=== PATIENT | female | born 1955 | race Caucasian/White ===

== ENCOUNTER 2017-03-22 11:14 | Emergency (ER) | payer OTHER ==
--- NOTE | 2017-03-22 13:02 | UC ---
Hip/Pelvis Pain - HPI Summary HPI Summary: complaint of right hip pain seen by PCP 1 week ago for right hip pain denies trauma but has been going up and down the stairs and moving boxes for the last 2 weeks concern about bursitits -sent by PCP for ct scan currently taking anticoagulat - arixida constant hip pain - prednisone not helping her sitting down and standing up she gets a sharp pain in her hip denies any swelling in her hip non radiating pain inside her hip not taking any medication for pain d/t biliary disease -3-4 weeks ago had a bullseye ring on her left arm and was put on a week of doxtcylcine and PCP is concerned that she has lyme disease- denies fever seeing ortho and PCP next week - History Of Current Complaint Hx Obtained From: Patient <Lavern Guerrero - Last Filed: 03/22/17 14:30> <Criss Dinero - Last Filed: 03/22/17 14:34> - History Of Current Complaint Chief Complaint: UCLowerExtremity Stated Complaint: HIP PAIN Time Seen by Provider: 03/22/17 12:50 - Allergies/Home Medications Allergies/Adverse Reactions: Allergies Allergy/AdvReac Type Severity Reaction Status Date / Time Chocolate Allergy Rash Verified 10/12/16 09:58 BEES Allergy Hives/Diff. Uncoded 10/12/16 09:58 Breathing/I tching POISON BRIDGETT Allergy Hives/Diff. Uncoded 10/12/16 09:58 Breathing/I tching PMH/Surg Hx/FS Hx/Imm Hx Previously Healthy: Yes Cardiovascular History: Pacemaker/ICD, Other - sick sinus syndrome Other Cardiovascular History: sick sinus syndrome Other History Of: Anticoagulant Therapy - Surgical History Surgical History: Yes Surgery Procedure, Year, and Place: PACEMAKER, HYSTERCTOMY, SHOULDER YRS AGO, OVARIAN CYCST, - Family History Known Family History: Positive: Cardiac Disease, Hypertension, Blood Disorder - clotting, Other - esophageal cancer (father) - Social History Occupation: Retired Lives: With Family Alcohol Use: None Substance Use Type: None Smoking Status (MU): Never Smoked Tobacco - Immunization History Most Recent Influenza Vaccination: 2014 Most Recent Pneumonia Vaccination: none <Lavern Guerrero - Last Filed: 03/22/17 14:30> Review of Systems Constitutional: Negative Skin: Negative Eyes: Negative ENT: Negative Respiratory: Negative Cardiovascular: Negative Gastrointestinal: Negative Genitourinary: Negative Motor: Negative Neurovascular: Negative Musculoskeletal: Other: - hip pain Neurological: Negative Psychological: Negative All Other Systems Reviewed And Are Negative: Yes <Lavern Guerrero - Last Filed: 03/22/17 14:30> Physical Exam Triage Information Reviewed: Yes Appearance: No Pain Distress, Well-Nourished Vital Signs: Initial Vital Signs Temp 95.9 F 03/22/17 12:45 Pulse 70 03/22/17 12:45 Resp 18 03/22/17 12:45 BP 127/74 03/22/17 12:45 Pulse Ox 98 03/22/17 12:45 Vital Signs Reviewed: Yes Eyes: Positive: Conjunctiva Clear ENT: Positive: Pharynx normal, TMs normal Neck: Positive: No Lymphadenopathy Respiratory: Positive: Lungs clear, Normal breath sounds, No respiratory distress, No accessory muscle use Cardiovascular: Positive: RRR, No Murmur, Pulses Normal Abdomen Description: Positive: Nontender, Soft Bowel Sounds: Positive: Present Musculoskeletal: Positive: Other: - right hip tenderness no ecchymosis or edema Neurological: Positive: Alert Psychological Exam: Normal Skin Exam: Normal <Lavern Guerrero - Last Filed: 03/22/17 14:30> Vital Signs: Initial Vital Signs Temp 95.9 F 03/22/17 12:45 Pulse 70 03/22/17 12:45 Resp 18 03/22/17 12:45 BP 127/74 03/22/17 12:45 Pulse Ox 98 03/22/17 12:45 <Criss Dinero - Last Filed: 03/22/17 14:34> Hip Injury Course/Dx - Course Course Of Treatment: exam completed. will order ctscan as requested to rule out bursitis an blood formation in hip joint as requested by PCP. ct scan shows probabale lipoma in right hip joint will followup with orthopedics. will draw lyme titer and will followup with PCP - Differential Dx/Diagnosis Differential Diagnosis/HQI/PQRI: Bursitis, Sprain, Strain Provider Diagnoses: right hip pain <Lavern Guerrero - Last Filed: 03/22/17 14:30> Discharge <Lavern Guerrero - Last Filed: 03/22/17 14:30> <Criss Dinero - Last Filed: 03/22/17 14:34> - Discharge Plan Condition: Stable Disposition: HOME Patient Education Materials: Hip Pain (ED) Referrals: No Primary Care Phys,NOPCP [Primary Care Provider] - [facility] [place] [facility] [Outside] Additional Instructions: Please review your discharge instructions. please followup with your primary care provider and quality control specialist If your symptoms do not improve please call your primary care provider or return to urgent care. Attestation Statement User Type: Provider - I was available for consult. This patient was seen by the [facility]. The patient was not presented to, seen by, or examined by me. -Afia <Criss Dinero - Last Filed: 03/22/17 14:34>
--- NOTE | 2017-03-22 14:18 | RAD ---
INDICATION: Right hip pain COMPARISON: None TECHNIQUE: Noncontrast axial source images were obtained from the iliac crests through the symphysis pubis. FINDINGS: There is no acute fracture. There is an area of rarefaction measuring approximately 8 cm in cephalocaudal dimension and occupying the medullary space of the right femoral metadiaphysis. There is a sharp zone of transition. The lesion measures -80 Hounsfield units indicating the presence of fat. There is no scalloping/thinning of the adjacent cortex. There is no adjacent soft tissue abnormality on noncontrast imaging. This low index of suspicion entity may represent an intraosseous lipoma. It likely represents an incidental finding. However, a bone scan recommended for further characterization. There is mild to moderate osteoarthritic change involving the right hip which may account for the patient's symptoms. The SI joints and symphysis are intact. The remaining soft tissue elements of the bony pelvis are unremarkable. IMPRESSION: LOW INDEX OF SUSPICION PROXIMAL RIGHT FEMORAL LESION DESCRIBED. RECOMMEND FURTHER IMAGING STARTING WITH A BONE SCAN. UNDERLYING OSTEOARTHRITIS
[2017-03-22 14:56] VITALS: BP 113/78
== END 2017-03-22 14:56 | disposition home or self-care (01) ==
LOC: UCEAST 11:14
DX: M25.551 Pain in right hip (principal); Z95.0 Presence of cardiac pacemaker; I49.5 Sick sinus syndrome; Z79.01 Long term (current) use of anticoagulants
CPT/HCPCS: 72192; 86617; 99212; G0463

== ENCOUNTER 2017-08-08 10:12 | Emergency (ER) | payer OTHER ==
[2017-08-08 11:42] VITALS: BP 122/58
--- NOTE | 2017-08-08 12:11 | UC ---
Respiratory Complaint HPI - HPI Summary HPI Summary: Patient presents with a past medical history of SSS, TEENA and wear CPAP at night. She presents with complaints of chest and sinus congestion. Sputum production of thick purulent mucous, sinus discharge. She states that she cannot wear her CPAP because of the respiratory symptoms. - History of Current Complaint Chief Complaint: UCRespiratory Stated Complaint: RESP INFECTION Time Seen by Provider: 08/08/17 11:13 Hx Obtained From: Patient ?: No Onset/Duration: Gradual Onset, Lasting Days Severity Initially: Mild Severity Currently: Moderate Character: Cough: Productive Aggravating Factors: Exertion, Deep Breaths, Recumbent Position Alleviating Factors: Upright Position, Spontaneous Resolution Associated Signs And Symptoms: Positive: Wheezing, URI, Nasal Congestion, Sinus Discomfort - Risk Factors Pulmonary Embolism Risk Factors: Negative Cardiac Risk Factors: Negative Pseudomonas Risk Factors: Negative Tuberculosis Risk Factors: Negative - Allergies/Home Medications Allergies/Adverse Reactions: Allergies Allergy/AdvReac Type Severity Reaction Status Date / Time Chocolate Allergy Rash Verified 08/08/17 11:42 BEES Allergy Hives/Diff. Uncoded 08/08/17 11:42 Breathing/I tching POISON BRIDGETT Allergy Hives/Diff. Uncoded 08/08/17 11:42 Breathing/I tching PMH/Surg Hx/FS Hx/Imm Hx Previously Healthy: Yes Cardiovascular History: Pacemaker/ICD Psychological History: Anxiety Other History Of: Anticoagulant Therapy - Surgical History Surgical History: Yes Surgery Procedure, Year, and Place: PACEMAKER, HYSTERCTOMY, SHOULDER YRS AGO, OVARIAN CYCST, - Family History Known Family History: Positive: Cardiac Disease, Hypertension, Blood Disorder - clotting, Other - esophageal cancer (father) - Social History Occupation: Retired Lives: Alone Alcohol Use: None Substance Use Type: None Smoking Status (MU): Never Smoked Tobacco - Immunization History Most Recent Influenza Vaccination: 2014 Most Recent Pneumonia Vaccination: none Review of Systems Constitutional: Fatigue Skin: Negative Eyes: Negative ENT: Negative, Nasal Discharge, Sinus Congestion, Sinus Pain/Tenderness Respiratory: Cough Cardiovascular: Negative Gastrointestinal: Negative Genitourinary: Negative Motor: Negative Neurovascular: Negative Musculoskeletal: Negative Neurological: Negative Psychological: Negative All Other Systems Reviewed And Are Negative: Yes Physical Exam Triage Information Reviewed: Yes Appearance: Well-Appearing Vital Signs: Initial Vital Signs Temp 97.2 F 08/08/17 11:37 Pulse 70 08/08/17 11:37 Resp 18 08/08/17 11:37 BP 122/58 08/08/17 11:37 Pulse Ox 100 08/08/17 11:37 Vital Signs Reviewed: Yes Eye Exam: Normal ENT Exam: Normal ENT: Positive: Pharyngeal erythema, Nasal congestion, Nasal drainage Neck exam: Normal Neck: Positive: 1 Respiratory Exam: Normal Respiratory: Positive: Other: - harsh breath sounds. Cardiovascular Exam: Normal Abdominal Exam: Normal Musculoskeletal Exam: Normal Neurological Exam: Normal Psychological Exam: Normal Skin Exam: Normal UC Diagnostic Evaluation - Laboratory O2 Sat by Pulse Oximetry: 100 Respiratory Course/Dx - Course Course Of Treatment: Patient presents with sinus infection, and reports she reponds well to augmentin 875 mg bid x 10 days, I also recommend saline nasal spray. She was discharged home in stable conditions. - Differential Dx/Diagnosis Differential Diagnosis/HQI/PQRI: Sinusitis Provider Diagnoses: sinusitis Discharge - Discharge Plan Condition: Stable Disposition: HOME Prescriptions: Amoxicillin/Clavulanate TAB* [Augmentin TAB 875*] 875 mg PO BID #20 tab Patient Education Materials: Sinusitis (ED) Referrals: No Primary Care Phys,NOPCP [Primary Care Provider] -
== END 2017-08-08 12:05 | disposition home or self-care (01) ==
LOC: UCEAST 10:12
DX: J01.90 Acute sinusitis, unspecified (principal); Z95.0 Presence of cardiac pacemaker
CPT/HCPCS: 99212; G0463

== ENCOUNTER 2018-01-13 07:41 | Emergency (ER) | payer OTHER ==
[2018-01-13 07:54] VITALS: BP 122/76
--- NOTE | 2018-01-13 08:30 | UC ---
FLU HPI - HPI Summary HPI Summary: Patient presents with 2 days of myalgias, cough, overall malaise. Yesterday developed fever Tmax 102. Has felt wheezy. Has sinus pressure. - History of Current Complaint Chief Complaint: UCRespiratory Stated Complaint: BODYACHES,SORE THROAT Time Seen by Provider: 01/13/18 07:46 Hx Obtained From: Patient Onset/Duration: Gradual Onset, Lasting Days, Still Present Severity Currently: Mild Severity Initially: Moderate Pain Intensity: 8 Pain Scale Used: 0-10 Numeric Associated Signs & Symptoms: Positive: Fever, Myalgia, Cough, Nasal Congestion, Headache - Allergy/Home Medications Allergies/Adverse Reactions: Allergies Allergy/AdvReac Type Severity Reaction Status Date / Time chocolate flavor Allergy Rash Verified 01/13/18 07:55 BEES Allergy Hives/Diff. Uncoded 01/13/18 07:55 Breathing/I tching POISON BRIDGETT Allergy Hives/Diff. Uncoded 01/13/18 07:55 Breathing/I tching Home Medications: Home Medications Acetaminophen [Tylophen] 500 mg PO Q6H PRN 01/13/18 [History Confirmed 01/13/18] Cholecalciferol TAB* [Vitamin D TAB*] 1,000 unit PO DAILY 01/13/18 [History Confirmed 01/13/18] Fondaparinux* [Arixtra*] 7.5 mg SC BEDTIME 01/13/18 [History Confirmed 01/13/18] Omeprazole CAP* [Prilosec CAP* 20 MG] 20 mg PO DAILY 01/13/18 [History Confirmed 01/13/18] PMH/Surg Hx/FS Hx/Imm Hx - Additional Past Medical History Additional PMH: PRIMARY BILIARY DISORDER, CLOTTING DISORDER Cardiovascular History: Cardiac Disease Other History Of: Anticoagulant Therapy - Surgical History Surgical History: Yes Surgery Procedure, Year, and Place: PACEMAKER, HYSTERCTOMY, SHOULDER YRS AGO, OVARIAN CYCST, - Family History Known Family History: Positive: Cardiac Disease, Hypertension, Blood Disorder - clotting, Other - esophageal cancer (father) - Social History Alcohol Use: None Substance Use Type: None Smoking Status (MU): Never Smoked Tobacco - Immunization History Most Recent Influenza Vaccination: 2014 Most Recent Pneumonia Vaccination: none Review of Systems Constitutional: Fever, Chills, Fatigue ENT: Nasal Discharge, Sinus Congestion Respiratory: Cough Cardiovascular: Negative Gastrointestinal: Negative Musculoskeletal: Myalgia Neurological: Headache All Other Systems Reviewed And Are Negative: Yes Physical Exam Triage Information Reviewed: Yes Appearance: Well-Appearing, No Pain Distress, Well-Nourished Vital Signs: Initial Vital Signs Temp 97.0 F 01/13/18 07:49 Pulse 79 01/13/18 07:49 Resp 16 01/13/18 07:49 BP 122/76 01/13/18 07:49 Pulse Ox 96 01/13/18 07:49 Vital Signs Reviewed: Yes Eyes: Positive: Conjunctiva Clear ENT: Positive: Hearing grossly normal, Pharynx normal, TMs normal Neck: Positive: Supple, Nontender, No Lymphadenopathy Respiratory Exam: Normal Cardiovascular Exam: Normal Abdomen Description: Positive: Soft Musculoskeletal: Positive: No Edema Neurological: Positive: Alert Psychological: Positive: Age Appropriate Behavior Skin: Negative: rashes Diagnostics - Laboratory Diagnostic Studies Completed/Ordered: INFLUENZA A POSITIVE Flu Course/Dx - Differential Dx/Diagnosis Provider Diagnoses: INFLUENZA A Discharge - Sign-Out/Discharge Documenting (check all that apply): Discharge - Discharge Plan Condition: Stable Disposition: HOME Prescriptions: Oseltamivir CAP* [Tamiflu CAP*] 75 mg PO BID #10 cap Patient Education Materials: Influenza (ED) Referrals: No Primary Care Phys,NOPCP [Primary Care Provider] - Additional Instructions: SWAB POSITIVE FOR INFLUENZA A. TAMIFLU TWICE DAILY FOR 5 DAYS. OTC MEDS NEEDED FOR FEVER, BODY ACHES. STAY WELL HYDRATED AND RESTED. SEEK FOLLOW-UP WITH YOUR PCP IN [place] IF YOU ARE NOT IMPROVING EXPECTED. - Billing Disposition and Condition Condition: STABLE Disposition: HOME
== END 2018-01-13 08:30 | disposition home or self-care (01) ==
LOC: UCEAST 07:41
DX: J10.1 Influenza due to other identified influenza virus with other respiratory manifestations (principal); K83.9 Disease of biliary tract, unspecified; D68.9 Coagulation defect, unspecified; Z95.0 Presence of cardiac pacemaker
CPT/HCPCS: 87502; 99212; G0463

== ENCOUNTER 2018-02-28 23:07 | Emergency (ER) | payer OTHER ==
--- NOTE | 2018-03-01 00:11 | ED ---
Skin Complaint - HPI Summary HPI Summary: 63-year-old female presents with rash to left shoulder. She states that 2 weeks ago she started on doxycycline for Lyme disease. States she had 3 tick bites. She states she had a bull eye rash so they placed her on doxycycline. She states 3 days ago she had a bite she believes to her left shoulder. She states the redness has been spreading. She is concerned she has cellulitis. she denies any fevers. She states the area is itchy. She's been alternating Benadryl and hydrocortisone. She states that it helps. She states she is pain certainly is concerned that if she gets sepsis it will be bad. - History of Current Complaint Chief Complaint: EDRashSkinAbscess Time Seen by Provider: 02/28/18 23:43 Stated Complaint: RED SPOT ON SHOULDER Pain Intensity: 6 - Allergy/Home Medications Allergies/Adverse Reactions: Allergies Allergy/AdvReac Type Severity Reaction Status Date / Time chocolate flavor Allergy Rash Verified 01/13/18 07:55 BEES Allergy Hives/Diff. Uncoded 01/13/18 07:55 Breathing/I tching POISON BRIDGETT Allergy Hives/Diff. Uncoded 01/13/18 07:55 Breathing/I tching PMH/Surg Hx/FS Hx/Imm Hx Endocrine/Hematology History: Reports: Hx Anticoagulant Therapy, Hx Blood Disorders - clotting Denies: Hx Diabetes, Hx Thyroid Disease Cardiovascular History: Reports: Hx Pacemaker/ICD, Other Cardiovascular Problems /Disorders - sick sinus syndrome Denies: Hx Hypertension Respiratory History: Denies: Hx Asthma, Hx Chronic Obstructive Pulmonary Disease (COPD) GI History: Reports: Other GI Disorders - primary biliary imflammation - urdisol Denies: Hx Ulcer History: Denies: Hx Acute Renal Failure, Hx Chronic Renal Failure Musculoskeletal History: Reports: Hx Orthopedic Injury - ankle and knee sprains , Other Musculoskeletal History - 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 Sensory History: Denies: Hx Contacts or Glasses Opthamlomology History: Denies: Hx Contacts or Glasses Neurological History: Reports: Hx Migraine - visual migraines Psychiatric History: Reports: Hx Anxiety - panic attacks - sertraline, xanax - Surgical History Surgery Procedure, Year, and Place: PACEMAKER, HYSTERCTOMY, SHOULDER YRS AGO, OVARIAN CYCST, Infectious Disease History: No Infectious Disease History: Denies: Hx Clostridium Difficile, Hx Hepatitis, Hx Human Immunodeficiency Virus (HIV), Hx of Known/Suspected MRSA, Hx Shingles, Hx Tuberculosis, Hx Known/ Suspected VRE, Hx Known/Suspected VRSA, History Other Infectious Disease, Traveled Outside the [place] in Last 30 Days - Family History Known Family History: Positive: Cardiac Disease, Hypertension, Blood Disorder - clotting, Other - esophageal cancer (father) - Social History Alcohol Use: None Substance Use Type: Reports: None Smoking Status (MU): Never Smoked Tobacco Review of Systems Negative: Chest Pain Negative: Shortness Of Breath Positive: Rash All Other Systems Reviewed And Are Negative: Yes Physical Exam Triage Information Reviewed: Yes Vital Signs On Initial Exam: Initial Vitals Temp Pulse Resp BP Pulse Ox 98.2 F 75 16 167/80 99 02/28/18 23:14 02/28/18 23:14 02/28/18 23:14 02/28/18 23:14 02/28/18 23:14 Vital Signs Reviewed: Yes Appearance: Positive: Well-Appearing Skin: Positive: Warm, Dry, Other - bug bite appearing lesion to left shoulder with erythema without warmth to left shoulder, no signs of cellulitis appears allergic Head/Face: Positive: Normal Head/Face Inspection Eyes: Positive: Normal, Conjunctiva Clear Respiratory/Lung Sounds: Positive: Clear to Auscultation, Breath Sounds Present Cardiovascular: Positive: Normal, RRR Musculoskeletal: Positive: Normal Neurological: Positive: Normal Psychiatric: Positive: Normal Diagnostics - Vital Signs Vital Signs Temp Pulse Resp BP Pulse Ox 02/28/18 23:14 98.2 F 75 16 167/80 99 - Laboratory Lab Statement: Any lab studies that have been ordered have been reviewed, and results considered in the medical decision making process. Course/Dx - Course Course Of Treatment: 63-year-old female presents with rash to left shoulder. She states that 2 weeks ago she started on doxycycline for Lyme disease. States she had 3 tick bites. She states she had a bull eye rash so they placed her on doxycycline. She states 3 days ago she had a bite she believes to her left shoulder. She states the redness has been spreading. She is concerned she has cellulitis. she denies any fevers. She states the area is itchy. She' s been alternating Benadryl and hydrocortisone. She states that it helps. She states she is pain certainly is concerned that if she gets sepsis it will be bad. On exam has usually with left shoulder with allergic type reaction around it. Does not appear cellulitic. Had discussion with patient that does not need in another antibioitic but patient is insistent. discussed that appears to be allergic reactin to the bite. Discussed that Keflex was stepdown for doxycycline if would want to prescribe antibiotic should prescribe clindamycin. prescibed clindamycin although explained may have cause c diff. patient understand and agrees with plan. - Differential Diagnoses - Skin Complaint Differential Diagnoses: Abscess, Cellulitis, Contact Dermatitis - Diagnoses Provider Diagnoses: Bug bite Discharge - Sign-Out/Discharge Documenting (check all that apply): Discharge/Admit/Transfer - Discharge Plan Condition: Good Disposition: HOME Prescriptions: Clindamycin Cap(NF) [Clindamycin Cap 300 mg Cap(NF)] 300 mg PO TID #21 cap Patient Education Materials: Insect Bite or Sting (ED) Referrals: [facility] [place] [facility] [Outside] Additional Instructions: Take clindamycin three times a day for 7 days, take probiotic place Benadryl cream on area, take bendaryl at night place hydrocortisone on area Continue doxycyline Follow up with primary within 5 days Return to ED if develop fever, or any new or worsening symptoms - Billing Disposition and Condition Condition: GOOD Disposition: HOME
[2018-03-01 00:27] VITALS: BP 123/78
== END 2018-03-01 00:27 | disposition home or self-care (01) ==
LOC: ED 23:07
DX: S40.262A Insect bite (nonvenomous) of left shoulder, initial encounter (principal); W57.XXXA Bitten or stung by nonvenomous insect and other nonvenomous arthropods, initial encounter; Y92.9 Unspecified place or not applicable
CPT/HCPCS: 99282

== ENCOUNTER 2018-09-17 12:22 | Emergency (ER) | payer OTHER ==
[2018-09-17 14:23] VITALS: BP 137/81
--- NOTE | 2018-09-17 14:31 | ED ---
Abdominal Pain/Female - HPI Summary HPI Summary: A 63 y/o female presents to [facility] with a chief complaint of abd since 09/16/18. She states that the pain is not sharp but is constant. She rates her pain as 6/ 10 and states that her pain is in the lower abdomen. She claims that it feels like someone is jumping on her abdomen. She also c/o nausea. She reports that she takes bile salts for her primary biliary inflammation. She has had loose stool but claims this is her baseline. She had a colonoscopy done with the results being that she is high risk for diverticulitis. She denies any vomiting or diarrhea. She has a Hx of UTI. The patient reports that three times she thought she had appendicitis but her appendix was never removed. She has no aggravating or alleviating factors. - History of Current Complaint Chief Complaint: EDAbdPain Stated Complaint: LOWER ABD PAIN Time Seen by Provider: 09/17/18 14:25 Hx Obtained From: Patient Onset/Duration: Sudden Onset, Lasting Hours, Still Present Timing: Constant Severity Initially: Moderate Severity Currently: Moderate Pain Intensity: 6 Pain Scale Used: 0-10 Numeric Location: Diffuse - lower abd Radiates: No Character: Other: - not sh Aggravating Factor(s): Nothing Alleviating Factor(s): Nothing Allergies/Adverse Reactions: Allergies Allergy/AdvReac Type Severity Reaction Status Date / Time chocolate flavor Allergy Rash Verified 09/17/18 12:34 BEES Allergy Hives/Diff. Uncoded 09/17/18 12:34 Breathing/I tching POISON BRIDGETT Allergy Hives/Diff. Uncoded 09/17/18 12:34 Breathing/I tching PMH/Surg Hx/FS Hx/Imm Hx Endocrine/Hematology History: Reports: Hx Anticoagulant Therapy, Hx Blood Disorders - clotting Denies: Hx Diabetes, Hx Thyroid Disease Cardiovascular History: Reports: Hx Pacemaker/ICD, Other Cardiovascular Problems /Disorders - sick sinus syndrome Denies: Hx Hypertension Respiratory History: Denies: Hx Asthma, Hx Chronic Obstructive Pulmonary Disease (COPD) GI History: Reports: Other GI Disorders - primary biliary imflammation - urdisol Denies: Hx Ulcer History: Denies: Hx Acute Renal Failure, Hx Chronic Renal Failure Musculoskeletal History: Reports: Hx Orthopedic Injury - ankle and knee sprains , Other Musculoskeletal History - 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 Sensory History: Denies: Hx Contacts or Glasses Opthamlomology History: Denies: Hx Contacts or Glasses Neurological History: Reports: Hx Migraine - visual migraines Psychiatric History: Reports: Hx Anxiety - panic attacks - sertraline, xanax - Surgical History Surgery Procedure, Year, and Place: PACEMAKER, HYSTERCTOMY, SHOULDER YRS AGO, OVARIAN CYCST, Infectious Disease History: No Infectious Disease History: Denies: Hx Clostridium Difficile, Hx Hepatitis, Hx Human Immunodeficiency Virus (HIV), Hx of Known/Suspected MRSA, Hx Shingles, Hx Tuberculosis, Hx Known/ Suspected VRE, Hx Known/Suspected VRSA, History Other Infectious Disease, Traveled Outside the [place] in Last 30 Days - Family History Known Family History: Positive: Cardiac Disease, Hypertension, Blood Disorder - clotting, Other - esophageal cancer (father) - Social History Alcohol Use: None Substance Use Type: Reports: None Smoking Status (MU): Never Smoked Tobacco Review of Systems Negative: Fever Positive: Abdominal Pain, Nausea. Negative: Vomiting, Diarrhea All Other Systems Reviewed And Are Negative: Yes Physical Exam - Summary Physical Exam Summary: Appearance: The patient is well-nourished in no acute distress and in no acute pain. Skin: The skin is warm and dry and skin color reflects adequate perfusion. HEENT: The head is normocephalic and atraumatic. The pupils are equal and reactive. The conjunctivae are clear and without drainage. Nares are patent and without drainage. Mouth reveals moist mucous membranes and the throat is without erythema and exudate. The external ears are intact. The ear canals are patent and without drainage. The tympanic membranes are intact. Neck: The neck is supple with full range of motion and non-tender. There are no carotid bruits. There is no neck vein distension. Respiratory: Chest is non-tender. Lungs are clear to auscultation and breath sounds are symmetrical and equal. Cardiovascular: Heart is regular rate and rhythm. There is no murmur or rub auscultated. There is no peripheral edema and pulses are symmetrical and equal. Abdomen: Diffusely tender in lower abdomen. There are normal bowel sounds heard in all four quadrants and there is no organomegaly palpated. Musculoskeletal: There is no back tenderness noted. Extremities are non-tender with full range of motion. There is good capillary refill. There is no peripheral edema or calf tenderness elicited. Neurological: Patient is alert and oriented to person, place and time. The patient has symmetrical motor strength in all four extremities. Cranial nerves are grossly intact. Deep tendon reflexes are symmetrical and equal in all four extremities. Psychiatric: The patient has an appropriate affect and does not exhibit any anxiety or depression. Triage Information Reviewed: Yes Vital Signs On Initial Exam: Initial Vitals Temp Pulse Resp BP Pulse Ox 97.3 F 70 16 149/90 96 09/17/18 12:34 09/17/18 12:34 09/17/18 12:34 09/17/18 12:34 09/17/18 12:34 Vital Signs Reviewed: Yes Diagnostics - Vital Signs Vital Signs Temp Pulse Resp BP Pulse Ox 09/17/18 14:22 70 95 09/17/18 14:20 71 137/81 95 09/17/18 12:34 97.3 F 70 16 149/90 96 - Laboratory Result Diagrams: 09/17/18 15:25 09/17/18 15:26 Lab Statement: Any lab studies that have been ordered have been reviewed, and results considered in the medical decision making process. - CT abdomen/pelvis CT Interpretation Completed By: Radiologist Summary of CT Findings: 1. NO EVIDENCE FOR ACUTE FINDING. 2. MILD HEPATOMEGALY AND HEPATIC STEATOSIS. 3. CHOLELITHIASIS WITHOUT EVIDENCE FOR ACUTE CHOLECYSTITIS. 4. STATUS POST HYSTERECTOMY. 5. LUCENT LESION IN THE PROXIMAL RIGHT FEMUR, UNCHANGED. ED physician has reviewed this imaging report. Re-Evaluation - Re-Evaluation First Eval Re-Evaluation Time: 16:40 Change: Improved Comment: Patient is feeling better and ready for discharge. Abdominal Pain Fem Course/Dx - Course Course Of Treatment: Ms. Vizcaino presented complaining of several days of low abdominal pain that has been intermittent and crampy at times. She was nontoxic in appearance and her vital signs are stable on arrival. She had mild lower abdominal tenderness with normoactive bowel sounds. Her labs were obtained and unremarkable aside from a very slight bilirubin elevation and alkaline phosphatase elevation she has biliary process and her bilirubin is always in the vicinity. She's not sure about the alkaline phosphatase which is nontender in the right upper quadrant and her gallbladder on CT scan shows stones but no inflammation. CT is otherwise unremarkable except aside from a hyperechoic liver. I'm not sure the etiology of her abdominal pain and I tried to reassure her that it was not dangerous at this time. We do not have a UA but she states she has had many urinary tract infections and this does not feel like that. - Diagnoses Provider Diagnoses: Abdominal pain Discharge - Sign-Out/Discharge Documenting (check all that apply): Patient Departure - DC - Discharge Plan Condition: Stable Disposition: HOME Patient Education Materials: Abdominal Pain (ED) Referrals: Alona Cerrato MD [Primary Care Provider] - (2-3 days ) Additional Instructions: Follow up with your PCP in 2-3 days. Return to the ED if you experience any new or worsening symptoms. - Billing Disposition and Condition Condition: STABLE Disposition: Home - Attestation Statements Document Initiated by Scribe: Yes Documenting Scribe: Dano Horowitz Provider For Whom Esteban is Documenting (Include Credential): Juan José Child MD Scribe Attestation: Dano Roman, scribed for Juan José Child MD on 09/17/18 at 2048. Scribe Documentation Reviewed: Yes Provider Attestation: The documentation as recorded by the Dano tanner accurately reflects the service I personally performed and the decisions made by me, Juan José Child MD Status of Scribe Document: Viewed
[2018-09-17 15:40] LABS: ABS Basophils 0.1 10^3/ul (0-0.2); ABS Eosinophils 0.1 10^3/ul (0-0.6); ABS Lymphocytes 1.9 10^3/ul (1.0-4.8); ABS Monocytes 0.5 10^3/ul (0-0.8); ABS Neutrophils 2.5 10^3/ul (1.5-7.7); ABS Nucleated RBC 0 10^3/ul; Eosinophil % 1.4 %; Hematocrit 43 % (35-47); Hemoglobin 14.3 g/dl (12.0-16.0); Lymphocyte % 37.6 %; Mean Corpuscular HGB Conc 34 g/dl (31-36); Mean Corpuscular Hemoglobin 32 pg (27-31); Mean Corpuscular Volume 94 fL (80-97); Mean Platelet Volume 7.5 fL (7.4-10.4); Nucleated Red Blood Cells % 0.1; Platelet Count 245 10^3/ul (150-450); Red Cell Distribution Width 13 % (10.5-15)
[2018-09-17 15:56] LABS: EGFR Non-African American 98.7 (>60)
== END 2018-09-17 16:52 | disposition home or self-care (01) ==
LOC: ED 12:22
DX: R10.30 Lower abdominal pain, unspecified (principal); K80.20 Calculus of gallbladder without cholecystitis without obstruction; R16.0 Hepatomegaly, not elsewhere classified; R11.0 Nausea; F41.0 Panic disorder [episodic paroxysmal anxiety]; Z79.01 Long term (current) use of anticoagulants; Z87.440 Personal history of urinary (tract) infections; Z90.710 Acquired absence of both cervix and uterus; Z95.810 Presence of automatic (implantable) cardiac defibrillator
CPT/HCPCS: 36415; 74176; 80053; 83605; 85025; 86140; 99283

== ENCOUNTER 2019-01-05 17:47 | Emergency (ER) | payer OTHER ==
--- NOTE | 2019-01-05 19:52 | ED ---
Adult Trauma - HPI Summary HPI Summary: This patient is a 63 year old female presenting to [facility] with a chief complaint of injuries after a fall. The patient tripped over a shoelace and fell backwards and hit her head. She is primarily complaining of right hip pain. The patient says she initially felt pain in her neck but it has resolved. She describes the pain as soreness and rates it 2/10 in severity. Her primary concern is with bleeding because she takes Xarelto. - History of Current Complaint Chief Complaint: EDHeadInjury Stated Complaint: FALL/HEAD INJURY PER PT Time Seen by Provider: 01/05/19 19:41 Hx Obtained From: Patient Mechanism of Injury: Fall Ambulatory at the Scene: Yes Loss of Consciousness: no loss of consciousness Pain Intensity: 2 Pain Scale Used: 0-10 Numeric Location: Neck, Other - Hip - Allergy/Home Medications Allergies/Adverse Reactions: Allergies Allergy/AdvReac Type Severity Reaction Status Date / Time chocolate flavor Allergy Rash Verified 01/05/19 17:53 BEES Allergy Hives/Diff. Uncoded 09/17/18 12:34 Breathing/I tching POISON BRIDGETT Allergy Hives/Diff. Uncoded 09/17/18 12:34 Breathing/I tching National Institutes Of Health - NIH Scale Level of Consciousness: Alert/Keenly Responsive Ask Patient the Month and His/Her Age: Both Correct Ask Pt to Open/Close Eyes and Credit Collector/Release Non-Paretic Hand: Both Correctly Best Gaze (Only Horizontal Eye Movement): Normal Visual Field Testing: No Visual Loss Facial Paresis-Pt to Smile & Close Eyes or Grimace Symmetry: Normal/Symmetrical Motor Function - Right Arm: No Drift-Holds 10 Seconds Motor Function - Left Arm: No Drift-Holds 10 Seconds Motor Function - Right Leg: No Drift-Holds 10 Seconds Motor Function - Left Leg: No Drift-Holds 10 Seconds Limb Ataxia-Must be out of Proportion to Weakness Present: Absent Sensory (Use Pinprick to Test Arms/Legs/Trunk/Face): Normal Best Language (Describe Picture, Name Items): No Aphasia Dysarthria (Read Several Words): Normal Extinction and Inattention: No Abnormality Total Score: 0 PMH/Surg Hx/FS Hx/Imm Hx Endocrine/Hematology History: Reports: Hx Anticoagulant Therapy, Hx Blood Disorders - clotting Denies: Hx Diabetes, Hx Thyroid Disease Cardiovascular History: Reports: Hx Pacemaker/ICD, Other Cardiovascular Problems /Disorders - sick sinus syndrome Denies: Hx Hypertension Respiratory History: Denies: Hx Asthma, Hx Chronic Obstructive Pulmonary Disease (COPD) GI History: Reports: Other GI Disorders - primary biliary imflammation - urdisol Denies: Hx Ulcer History: Denies: Hx Acute Renal Failure, Hx Chronic Renal Failure Musculoskeletal History: Reports: Hx Orthopedic Injury - ankle and knee sprains , Other Musculoskeletal History - 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 Sensory History: Denies: Hx Contacts or Glasses Opthamlomology History: Denies: Hx Contacts or Glasses Neurological History: Reports: Hx Migraine - visual migraines Psychiatric History: Reports: Hx Anxiety - panic attacks - sertraline, xanax - Surgical History Surgery Procedure, Year, and Place: PACEMAKER, HYSTERCTOMY, SHOULDER YRS AGO, OVARIAN CYCST, Infectious Disease History: No Infectious Disease History: Denies: Hx Clostridium Difficile, Hx Hepatitis, Hx Human Immunodeficiency Virus (HIV), Hx of Known/Suspected MRSA, Hx Shingles, Hx Tuberculosis, Hx Known/ Suspected VRE, Hx Known/Suspected VRSA, History Other Infectious Disease, Traveled Outside the [place] in Last 30 Days - Family History Known Family History: Positive: Cardiac Disease, Hypertension, Blood Disorder - clotting, Other - esophageal cancer (father) - Social History Alcohol Use: None Substance Use Type: Reports: None Smoking Status (MU): Never Smoked Tobacco Review of Systems Negative: Fever Positive: Other - Right Hip pain- still present. Neck pain- resolved. All Other Systems Reviewed And Are Negative: Yes Physical Exam - Summary Physical Exam Summary: Appearance: The patient is well-nourished in no acute distress and in no acute pain. Skin: The skin is warm and dry and skin color reflects adequate perfusion. Small ecchymosis on right hip, mild tenderness. HEENT: The head is normocephalic and atraumatic. The pupils are equal and reactive. The conjunctivae are clear and without drainage. Nares are patent and without drainage. Mouth reveals moist mucous membranes and the throat is without erythema and exudate. The external ears are intact. The ear canals are patent and without drainage. The tympanic membranes are intact. Neck: The neck is supple with full range of motion. There are no carotid bruits. There is no neck vein distension.Mild midline cervical tenderness Respiratory: Chest is non-tender. Lungs are clear to auscultation and breath sounds are symmetrical and equal. Cardiovascular: Heart is regular rate and rhythm. There is no murmur or rub auscultated. There is no peripheral edema and pulses are symmetrical and equal. Abdomen: The abdomen is soft and non-tender. There are normal bowel sounds heard in all four quadrants and there is no organomegaly palpated. Musculoskeletal: There is no back tenderness noted. Extremities are non-tender with full range of motion. There is good capillary refill. There is no peripheral edema or calf tenderness elicited. Neurological: Patient is alert and oriented to person, place and time. The patient has symmetrical motor strength in all four extremities. Cranial nerves are grossly intact. Deep tendon reflexes are symmetrical and equal in all four extremities. Psychiatric: The patient has an appropriate affect and does not exhibit any anxiety or depression. GCS: 15 Triage Information Reviewed: Yes Vital Signs On Initial Exam: Initial Vitals Temp Pulse Resp BP Pulse Ox 98.1 F 68 18 153/86 97 01/05/19 17:47 01/05/19 17:47 01/05/19 17:47 01/05/19 17:47 01/05/19 17:47 Vital Signs Reviewed: Yes Diagnostics - Vital Signs Vital Signs Temp Pulse Resp BP Pulse Ox 01/05/19 17:47 98.1 F 68 18 153/86 97 - Laboratory Lab Statement: Any lab studies that have been ordered have been reviewed, and results considered in the medical decision making process. - CT Brain CT Interpretation Completed By: Radiologist Summary of CT Findings: No acute intracranial abnormality. No interval changes. ED Provider has reviewed this report. Adult Trauma Course/Dx - Course Course Of Treatment: Ms. Vizcaino had a mechanical fall today and fell backwards onto her right by doc and hit the back of her head. There was no loss of consciousness and initially she didn't have any pain. She subsequently developed some posterior head pain and pain in the right but talk. She came in because she was concerned that she is on a blood thinner and hit her head. A CT scan was ordered at triage and was negative for any bleeding. She was in a hurry to get going as her needs attention. She promised she would come back if her hip bothered her more for her neck did. I think likely she has some contusion and cervical strain. - Diagnoses Provider Diagnoses: Contusion, hip, Head injury Discharge - Sign-Out/Discharge Documenting (check all that apply): Patient Departure - Discharge Patient Received Moderate/Deep Sedation with Procedure: No - Discharge Plan Condition: Stable Disposition: HOME Patient Education Materials: Head Injury (ED), Hip Contusion (ED) Referrals: Alona Cerrato MD [Primary Care Provider] - Additional Instructions: Return to ED with any new or worsening symptoms. - Billing Disposition and Condition Condition: STABLE Disposition: Home - Attestation Statements Document Initiated by Esteban: Yes Documenting Scribe: Zack Cadena Provider For Whom Esteban is Documenting (Include Credential): Juan José Child MD Scribe Attestation: Zack Roman scribed for Juan José Child MD on 01/05/19 at 2111. Scribe Documentation Reviewed: Yes Provider Attestation: The documentation as recorded by the Zack tanner accurately reflects the service I personally performed and the decisions made by me, Juan José Child MD Status of Scribe Document: Viewed
[2019-01-05 19:57] VITALS: BP 153/95
== END 2019-01-05 19:56 | disposition home or self-care (01) ==
LOC: ED 17:47
DX: S09.90XA Unspecified injury of head, initial encounter (principal); S70.01XA Contusion of right hip, initial encounter; W01.0XXA Fall on same level from slipping, tripping and stumbling without subsequent striking against object, initial encounter; Y92.9 Unspecified place or not applicable; F41.0 Panic disorder [episodic paroxysmal anxiety]; Z79.01 Long term (current) use of anticoagulants; Z95.810 Presence of automatic (implantable) cardiac defibrillator
CPT/HCPCS: 70450; 99282

== ENCOUNTER 2019-06-16 17:56 | Emergency (ER) | payer MEDICARE ==
[2019-06-16 18:12] VITALS: BP 126/74
[2019-06-16] MEDS ORDERED: Cephalexin CAP* 500 MG PO ONE (18:30)
--- NOTE | 2019-06-16 18:32 | UC ---
Skin Complaint HPI - HPI Summary HPI Summary: 64-year-old woman comes in with a chief complaint of a rash under her left armpit. Started several days ago some redness there and she also noticed swelling just underneath the skin. No fevers or chills feels well otherwise. Patient reports she had a recent physical examination with her primary care doctor had normal lab work and normal mammogram. - History of Current Complaint Chief Complaint: UCSkin Time Seen by Provider: 06/16/19 18:15 Stated Complaint: LUMP UNDER ARM Hx Last Menstrual Period: post menopause Pain Intensity: 5 - Allergy/Home Medications Allergies/Adverse Reactions: Allergies Allergy/AdvReac Type Severity Reaction Status Date / Time chocolate flavor Allergy Rash Verified 06/16/19 18:01 BEES Allergy Hives/Diff. Uncoded 06/16/19 18:01 Breathing/I tching POISON BRIDGETT Allergy Hives/Diff. Uncoded 06/16/19 18:01 Breathing/I tching Home Medications: Home Medications Rivaroxaban TAB(*) [Xarelto 20 mg] 06/16/19 [History] PMH/Surg Hx/FS Hx/Imm Hx Previously Healthy: Yes Cardiovascular History: Hypertension Other History Of: Anticoagulant Therapy - Surgical History Surgical History: Yes Surgery Procedure, Year, and Place: PACEMAKER, HYSTERCTOMY, SHOULDER YRS AGO, OVARIAN CYCST, - Family History Known Family History: Positive: Cardiac Disease, Hypertension, Blood Disorder - clotting, Other - esophageal cancer (father) - Social History Alcohol Use: None Substance Use Type: None Smoking Status (MU): Never Smoked Tobacco - Immunization History Most Recent Influenza Vaccination: 2014 Most Recent Pneumonia Vaccination: none Review of Systems All Other Systems Reviewed And Are Negative: Yes Constitutional: Positive: Negative Skin: Positive: Other - SEE HPI Eyes: Positive: Negative ENT: Positive: Negative Respiratory: Positive: Negative Cardiovascular: Positive: Negative Gastrointestinal: Positive: Negative Motor: Positive: Negative Neurovascular: Positive: Negative Musculoskeletal: Positive: Negative Neurological: Positive: Negative Psychological: Positive: Negative Is Patient Immunocompromised?: No Physical Exam Triage Information Reviewed: Yes Appearance: Well-Appearing, No Pain Distress, Well-Nourished Vital Signs: Initial Vital Signs Temp 98.3 F 06/16/19 18:02 Pulse 69 06/16/19 18:02 Resp 16 06/16/19 18:02 BP 126/74 06/16/19 18:02 Pulse Ox 98 06/16/19 18:02 Vital Signs Reviewed: Yes Eye Exam: Normal Eyes: Positive: Conjunctiva Clear Neck: Positive: Supple Respiratory: Positive: No respiratory distress Musculoskeletal: Positive: Strength Intact Neurological: Positive: Alert Psychological: Positive: Age Appropriate Behavior Skin: Positive: Other - In the left axilla there is a 2 cm diameter area of erythema fold and there is a 5 mm firm swelling that is mobile just underneath the skin. No drainage. No streaking. Course/Dx - Course Course Of Treatment: The area appears to be a skin infection with swelling just underneath the skin which may be a folliculitis. Going to treat with Keflex 500 mg by mouth 3 times a day. Also recommended ketoconazole to be used in case there is a fungal component. Also we discussed having a follow-up to primary care doctor to ensure that the swelling does go away. Patient reports a normal mammogram recently normal blood work however she is aware that the swelling in the patient should be rechecked to ensure complete resolution. - Diagnoses Provider Diagnosis: Cellulitis of left axilla Discharge ED - Sign-Out/Discharge Documenting (check all that apply): Patient Departure All imaging exams completed and their final reports reviewed: No Studies - Discharge Plan Condition: Stable Disposition: HOME Prescriptions: Cephalexin CAP* [Keflex CAP*] 500 mg PO TID #28 cap Ketoconazole 1 applic TOPICAL BID #15 gm Patient Education Materials: Cellulitis (ED) Referrals: Alona Cerrato MD [Primary Care Provider] - Additional Instructions: FOLLOW UP WITH YOUR DOCTOR IF NOT COMPLETELY IMPROVED. GET THE LEFT ARM PIT SWELLING RECHECKED WITH YOUR DOCTOR TO MAKE SURE IT RESOLVES COMPLETELY. GET RECHECKED SOONER IF YOUR CONDITION WORSENS OR ANY QUESTIONS OR CONCERNS. - Billing Disposition and Condition Condition: STABLE Disposition: Home
== END 2019-06-16 18:35 | disposition home or self-care (01) ==
LOC: UCEAST 17:56
DX: L03.112 Cellulitis of left axilla (principal); I10 Essential (primary) hypertension; Z79.01 Long term (current) use of anticoagulants
CPT/HCPCS: 99212; A9270-GY; G0463